=== PATIENT | female | born 1970 | race Hispanic/Latino ===

== ENCOUNTER 2021-08-03 22:38 | Emergency (ER) | payer SELFPAY ==
--- NOTE | 2021-08-04 04:04 | EDPHYS ---
Physician Documentation [facility] Name: Tara Miranda Age: 50 yrs Sex: Female : 1970 Arrival Date: 08/03/2021 Time: 22:40 Bed 3 Private MD: ED Physician Blayne Majano HPI: 08/04 03:57 This 50 yrs old Female presents to ER via Ambulatory with complaints of jess Infected Finger, Arm Pain. 03:57 The patient or guardian complains of decreased range of motion, pain, swelling. The jess complaints affect the left elbow, left hand and palmar aspect of left forearm. Context: resulted from unknown cause. Onset: The symptoms/episode began/occurred 3 day(s) ago. Treatment prior to arrival includes: no previous treatment. Modifying factors: The symptoms are alleviated by nothing. the symptoms are aggravated by nothing. Associated signs and symptoms: The patient has no apparent associated signs or symptoms. Severity of symptoms: At their worst the symptoms were mild, in the emergency department the symptoms are unchanged. The patient has not experienced similar symptoms in the past. 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 - Social history:: Smoking status: Patient denies any tobacco usage or history of. Patient/guardian denies using alcohol. - Family history:: not pertinent. ROS: 03:57 Constitutional: Negative for fever, chills, and weight loss, Eyes: Negative for injury, jess pain, redness, and discharge, ENT: Negative for injury, pain, and discharge, Neck: Negative for injury, pain, and swelling, Cardiovascular: Negative for chest pain, palpitations, and edema, Respiratory: Negative for shortness of breath, cough, wheezing, and pleuritic chest pain, Abdomen/GI: Negative for abdominal pain, nausea, vomiting, diarrhea, and constipation, Back: Negative for injury and pain, : Negative for injury, bleeding, discharge, and swelling, Neuro: Negative for headache, weakness, numbness, tingling, and seizure, Psych: Negative for depression, anxiety, suicide ideation, homicidal ideation, and hallucinations, Allergy/Immunology: Negative for hives, rash, and allergies, Endocrine: Negative for neck swelling, polydipsia, polyuria, polyphagia, and marked weight changes, Hematologic/Lymphatic: Negative for swollen nodes, abnormal bleeding, and unusual bruising. 03:57 MS/extremity: Positive for decreased range of motion, erythema, pain, rash, swelling, tenderness. 03:57 Skin: Positive for cellulitis, rash, swelling. Exam: 03:57 Constitutional: This is a well developed, well nourished patient who is awake, alert, jess and in no acute distress. Head/Face: Normocephalic, atraumatic. Eyes: Pupils equal round and reactive to light, extra-ocular motions intact. Lids and lashes normal. Conjunctiva and sclera are non-icteric and not injected. Cornea within normal limits. Periorbital areas with no swelling, redness, or edema. ENT: Nares patent. No nasal discharge, no septal abnormalities noted. Tympanic membranes are normal and external auditory canals are clear. Oropharynx with no redness, swelling, or masses, exudates, or evidence of obstruction, uvula midline. Mucous membranes moist. Neck: Trachea midline, no thyromegaly or masses palpated, and no cervical lymphadenopathy. Supple, full range of motion without nuchal rigidity, or vertebral point tenderness. No Meningismus. Chest/axilla: Normal chest wall appearance and motion. Nontender with no deformity. No lesions are appreciated. Cardiovascular: Regular rate and rhythm with a normal S1 and S2. No gallops, murmurs, or rubs. Normal PMI, no JVD. No pulse deficits. Respiratory: Lungs have equal breath sounds bilaterally, clear to auscultation and percussion. No rales, rhonchi or wheezes noted. No increased work of breathing, no retractions or nasal flaring. Abdomen/GI: Soft, non-tender, with normal bowel sounds. No distension or tympany. No guarding or rebound. No evidence of tenderness throughout. Back: No spinal tenderness. No costovertebral tenderness. Full range of motion. Skin: Warm, dry with normal turgor. Normal color with no rashes, no lesions, and no evidence of cellulitis. Neuro: Awake and alert, GCS 15, oriented to person, place, time, and situation. Cranial nerves II-XII grossly intact. Motor strength 5/5 in all extremities. Sensory grossly intact. Cerebellar exam normal. Normal gait. Psych: Awake, alert, with orientation to person, place and time. Behavior, mood, and affect are within normal limits. 03:57 Musculoskeletal/extremity: Extremities: erythema, pain, swelling, tenderness, ROM: full active range of motion, full passive range of motion, Circulation is intact in all extremities. Sensation intact. Compartment Syndrome exam of affected extremity: is normal. DVT Exam: negative Homans' sign noted on exam, no appreciated bluish discoloration, pain, swelling, tenderness, erythema, increased warmth. Vital Signs: 08/03 23:57 BP 147 / 79; Pulse 67; Resp 17 S; Temp 98.3(O); Pulse Ox 100% on R/A; Weight 68.95 kg lg3 (R); Height 5 ft. (152.40 cm) (R); Pain 8/10; 08/04 02:13 BP 113 / 93; Pulse 56; Resp 18 S; Pulse Ox 99% on R/A; as6 03:00 BP 127 / 76; Pulse 51; Resp 18; Pulse Ox 99% on R/A; oe 04:00 BP 143 / 85; Pulse 56; Resp 18; Pulse Ox 100% on R/A; oe 04:30 BP 134 / 80; Pulse 52; Resp 18 S; Pulse Ox 99% on R/A; al4 08/03 23:57 Body Mass Index 29.69 (68.95 kg, 152.40 cm) lg3 Procedures: 04:08 I \T\ D: Incision and drainage was performed for an abscess of the left dorsal aspect of jess middle phalanx of left ring finger and palmar aspect of middle phalanx of left ring finger Prepped with Betadine, alcohol, Incised with 18 guage. Drained small amount serosanguinous fluid. Dressing: non-Adherent dressing, the patient tolerated the procedure well. MDM: 01:22 Patient medically screened. [facility] 04:01 Differential diagnosis: contusion, abrasion, tendonitis. Data reviewed: vital signs, [facility] nurses notes, lab test result(s), blood glucose. Data interpreted: shelter monitor: not applicable for this patient encounter. rate is 56 beats/min, rhythm is regular, Pulse oximetry: on room air is 100 %. Test interpretation: by ED physician or midlevel provider:. Counseling: I had a detailed discussion with the patient and/or guardian regarding: the historical points, exam findings, and any diagnostic results supporting the discharge/admit diagnosis, lab results, the need for outpatient follow up, for definitive care, a family practitioner, a hand specialist. 08/04 04:25 Order name: Glucose, Ancillary Testing EDDC 08/04 03:57 Order name: Blood Glucose Level; Complete Time: 04:17 jess Administered Medications: 03:59 Drug: Doxycycline 200 mg Route: PO; al4 04:36 Follow up: Response: No adverse reaction al4 03:59 Drug: Bactroban (mupirocin) Ointment 2 % 1 application Route: Topical; Site: wound; al4 04:36 Follow up: Response: No adverse reaction al4 03:59 Drug: Bactrim (trimethoprim-sulfamethoxazole) (160 mg-800 mg (DS) 1 tablet Route: PO; al4 04:36 Follow up: Response: No adverse reaction al4 03:59 Drug: valACYclovir 1000 mg Route: PO; al4 04:36 Follow up: Response: No adverse reaction al4 04:14 Drug: [place] (HYDROcodone-acetaminophen) 10 mg-325 mg 1 tabs Route: PO; al4 04:36 Follow up: Response: No adverse reaction; RASS: Alert and Calm (0) al4 04:16 Drug: Zofran (Ondansetron) 4 mg Route: PO; al4 04:35 Follow up: Response: No adverse reaction al4 Disposition Summary: 08/04/21 04:04 Discharge Ordered Location: Home jess Problem: new jess Symptoms: have improved jess Condition: Stable jess Diagnosis - Type 2 diabetes mellitus with hyperglycemia jess - Cellulitis and acute lymphangitis of other parts of limb - left 4th finger jess Followup: jess - With: Private Physician - When: 2 - 3 days - Reason: Recheck today's complaints, Continuance of care, Re-evaluation by your physician Followup: jess - With: Mic Vega MD - When: 2 - 3 days - Reason: Recheck today's complaints, Re-evaluation by your physician Discharge Instructions: - Discharge Summary Sheet [facility] - Type 2 Diabetes Mellitus, Diagnosis, Adult [facility] - Hyperglycemia [facility] - Lymphedema [facility] - Blood Glucose Monitoring, Adult [facility] - Diabetes Mellitus and Nutrition, Adult [facility] - Lymphadenopathy [facility] Forms: - Medication Reconciliation Form [facility] - Thank You Letter [facility] - Antibiotic Education [facility] - Prescription Opioid Use [facility] Prescriptions: - Doxycycline Hyclate 100 mg Oral Tablet - take 1 tablet by ORAL route every 12 hours; 20 tablet; Refills: 0, Product [facility] Selection Permitted - Bactrim DS 800-160 mg Oral Tablet - take 1 tablet by ORAL route every 12 hours for 10 days; 20 tablet; Refills: 0, [facility] Product Selection Permitted - Tylenol-Codeine #3 300 mg-30 mg Oral - take 2 tablet by ORAL route every 6 hours; 20 tablet; Refills: 0, Product [facility] Selection Permitted - Centany 2 % Topical ointment - apply 1 application by TOPICAL route 3 times per day for 14 days; 22 gram; [facility] Refills: 0, Product Selection Permitted - Valtrex 1 gram Oral tablet - take 1 tablet by ORAL route 3 times per day for 7 days; 21 tablet; Refills: 0, [facility] Product Selection Permitted Signatures: Blayne Majano MD MD cha Gibson, Lacie RN RN lg3 Tae Mcgarry4
--- NOTE | 2021-08-04 04:04 | ER ---
Nurse's Notes [facility] Name: Tara Miranda Age: 50 yrs Sex: Female : 1970 Arrival Date: 08/03/2021 Time: 22:40 Bed 3 Private MD: Diagnosis: Type 2 diabetes mellitus with hyperglycemia;Cellulitis and acute lymphangitis of other parts of limb-left 4th finger Presentation: 08/03 23:57 Chief complaint: Patient's son or daughter states: Sunday night noticed a cluster of lg3 blisters on right finger of left hand. applied triple antibiotic ointment and covered it all day Sunday and Sunday. on Sunday it was black and spreading outward's and now is continuing to get worse. now there is a painful, swollen lump on my forearm and the inside of my left elbow that is not getting better. Coronavirus screen: Client denies travel out of the [place] in the last 14 days. At this time, the client does not indicate any symptoms associated with coronavirus-19. Ebola Screen: No symptoms or risks identified at this time. Initial Sepsis Screen: Does the patient meet any 2 criteria? No. Patient's initial sepsis screen is negative. Does the patient have a suspected source of infection? No. Patient's initial sepsis screen is negative. Risk Assessment: Do you want to hurt yourself or someone else? Patient reports no desire to harm self or others. Onset of symptoms was July 30, 2021. 23:57 Method Of Arrival: Ambulatory lg3 23:57 Acuity: AVERY 3 lg3 Triage Assessment: 08/04 00:04 General: Appears in no apparent distress. uncomfortable, Behavior is calm, cooperative. lg3 Pain: Complains of pain in dorsal aspect of middle phalanx of left ring finger and left arm. EENT: No deficits noted. No signs and/or symptoms were reported regarding the EENT system. Neuro: No deficits noted. Level of Consciousness is awake, alert, obeys commands, Oriented to person, place, time, situation. Cardiovascular: No deficits noted. Denies chest pain, shortness of breath, Capillary refill < 3 seconds Patient's skin is warm and dry. Respiratory: No deficits noted. Airway is patent Trachea midline Respiratory effort is even, unlabored, Respiratory pattern is regular, symmetrical. GI: No deficits noted. No signs and/or symptoms were reported involving the gastrointestinal system. : No deficits noted. No signs and/or symptoms were reported regarding the genitourinary system. Derm: Wound noted dorsal aspect of middle phalanx of left ring finger Reports pain tingling, numbness. Musculoskeletal: No deficits noted. No signs and/or symptoms reported regarding the musculoskeletal system. Circulation, motion, and sensation intact. Range of motion: intact in all extremities. 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 - Social history:: Smoking status: Patient denies any tobacco usage or history of. Patient/guardian denies using alcohol. - Family history:: not pertinent. Screenin:13 Abuse screen: Denies threats or abuse. Denies injuries from another. Nutritional as6 screening: No deficits noted. Tuberculosis screening: No symptoms or risk factors identified. Fall Risk None identified. Assessment: 02:12 General: Appears in no apparent distress. Behavior is calm, cooperative. Pain: as6 Complains of pain in palmar aspect of middle phalanx of left ring finger. Derm: Skin is black, to left ring finger. 03:15 Reassessment: Patient appears in no apparent distress at this time. Patient is alert, al4 oriented x 3, equal unlabored respirations, skin warm/dry/pink. 04:15 Reassessment: Patient appears in no apparent distress at this time. Patient is alert, al4 oriented x 3, equal unlabored respirations, skin warm/dry/pink. Vital Signs: 08/03 23:57 BP 147 / 79; Pulse 67; Resp 17 S; Temp 98.3(O); Pulse Ox 100% on R/A; Weight 68.95 kg lg3 (R); Height 5 ft. (152.40 cm) (R); Pain 8/10; 08/04 02:13 BP 113 / 93; Pulse 56; Resp 18 S; Pulse Ox 99% on R/A; as6 03:00 BP 127 / 76; Pulse 51; Resp 18; Pulse Ox 99% on R/A; oe 04:00 BP 143 / 85; Pulse 56; Resp 18; Pulse Ox 100% on R/A; oe 04:30 BP 134 / 80; Pulse 52; Resp 18 S; Pulse Ox 99% on R/A; al4 08/03 23:57 Body Mass Index 29.69 (68.95 kg, 152.40 cm) lg3 ED Course: 08/03 22:40 Patient arrived in ED. mr 08/04 00:04 Triage completed. lg3 00:04 Arm band placed on left wrist. lg3 01:17 Mesfin Null, HARESH is Primary Nurse. as6 01:22 Blayne Majano MD is Attending Physician. jess 02:13 Bed in low position. Call light in reach. Side rails up X 1. Adult w/ patient. Pulse ox as6 on. NIBP on. 04:04 Mic Vega MD is Referral Physician. jess 04:20 No provider procedures requiring assistance completed. Patient did not have IV access al4 during this emergency room visit. Administered Medications: 03:59 Drug: Doxycycline 200 mg Route: PO; al4 04:36 Follow up: Response: No adverse reaction al4 03:59 Drug: Bactroban (mupirocin) Ointment 2 % 1 application Route: Topical; Site: wound; al4 04:36 Follow up: Response: No adverse reaction al4 03:59 Drug: Bactrim (trimethoprim-sulfamethoxazole) (160 mg-800 mg (DS) 1 tablet Route: PO; al4 04:36 Follow up: Response: No adverse reaction al4 03:59 Drug: valACYclovir 1000 mg Route: PO; al4 04:36 Follow up: Response: No adverse reaction al4 04:14 Drug: [place] (HYDROcodone-acetaminophen) 10 mg-325 mg 1 tabs Route: PO; al4 04:36 Follow up: Response: No adverse reaction; RASS: Alert and Calm (0) al4 04:16 Drug: Zofran (Ondansetron) 4 mg Route: PO; al4 04:35 Follow up: Response: No adverse reaction al4 Outcome: 04:04 Discharge ordered by . jess 04:20 Discharged to home ambulatory, with family. al4 04:20 Condition: stable 04:20 Discharge instructions given to patient, Instructed on discharge instructions, follow up and referral plans. Demonstrated understanding of instructions, follow-up care. 04:39 Patient left the ED. al4 Signatures: Blayne Majano MD MD cha Rivera, Kenzie mr Felecia, Lanie Burleson RN RN lg3 Mesfin Null RN RN as6 Tae Mcgarry al4
[2021-08-04] MEDS ORDERED: MUPIROCIN 2% OINT 22GM TUBE TOP ONE (04:06)
[2021-08-04] MEDS ORDERED: DOXYCYCLINE 100 MG CAP PO ONE (04:06)
[2021-08-04] MEDS ORDERED: SMZ./TMP. 800/160 MG TABLET ONE (04:06)
[2021-08-04] MEDS ORDERED: VALACYCLOVIR 500 MG TAB ONE (04:07)
[2021-08-04] MEDS ORDERED: HYDROCODONE/APAP 10/325 TAB ONE (04:14)
[2021-08-04] MEDS ORDERED: ONDANSETRON 4 MG (ODT) TAB ONE (04:19)
[2021-08-04 05:53] VITALS: TEMP 98.3
[2021-08-04 06:13] VITALS: BP 134/80; O2SAT 99
== END 2021-08-04 04:39 | disposition home or self-care (01) ==
LOC: ER 22:38
PROC: 0H9GXZZ Drainage of Left Hand Skin, External Approach (ICD-10-PCS; principal; 2021-08-04)
DX: L03.012 Cellulitis of left finger (principal); L03.022 Acute lymphangitis of left finger; E11.65 Type 2 diabetes mellitus with hyperglycemia
CPT/HCPCS: 82947; 99283